=== PATIENT | female | born 2000 | race Two or more races ===

== ENCOUNTER → 2025-01-06 | Emergency (ER) | payer OTHER ==
[~2025-01-06] VITALS: Ht 162.6 cm; Wt 92.5 kg
[2025-01-07 01:11] LABS: BASO % 0.3 % (0.1-1.2); EOS # 0.65 (0.04-0.54); EOS % 5.5 % (0.7-7.0); LYMPH # 2.57 (1.18-3.74); LYMPH % 21.8 % (19.3-53.1); MEAN PLATELET VOLUME 10.80 fl (9.4-12.4); MONO # 0.70 (0.24-0.82); MONO % 5.9 % (4.7-12.5); NEUT # 7.80 (1.56-6.13); NEUT % 66.3 % (34.0-71.1); RED CELL DISTRIBUTION WIDTH 13.8 % (11.6-14.4)
[2025-01-07 01:27] LABS: URINE APPEARANCE Clear; URINE BILIRRUBIN Negative (NEGATIVE); URINE BLOOD Negative; URINE COLOR Yellow; URINE GLUCOSE Negative (NEGATIVE); URINE KETONE Negative (NEGATIVE); URINE LEUKOCYTE Negative; URINE NITRATE Negative; URINE PROTEIN Negative (NEGATIVE); URINE UROBILINOGEN 0.2 E.U./dl
[2025-01-07 01:28] LABS: URINE BACTERIA 244.7 uL (0.0-1933); URINE EPITHELIAL CELLS 7.8 uL (0.0-38.8); URINE RBC 4.3 uL (0.0-20.8); URINE WBC 6.9 uL (0.0-23.2)
[2025-01-07 01:51] LABS: URINE CAST 0.00 uL (0.0-1.40)
== END | disposition home or self-care (01) ==
LOC: ER 21:46
PROVIDERS: General Practice
DX: O20.9 Hemorrhage in early pregnancy, unspecified (principal); Z3A.08 8 weeks gestation of pregnancy

== ENCOUNTER 2025-01-12 21:24 | Emergency (ER) | payer OTHER ==
[~2025-01-12] VITALS: Ht 162.6 cm; Wt 92.5 kg
[2025-01-12] MEDS ORDERED: PRENATE DHA SO1 EAC1 (21:35)
[2025-01-12] MEDS ORDERED: 0.9 % SODIUM CHLORIDE 1,000 ML IV ONE (22:00)
[2025-01-12] MEDS ORDERED: FAMOtidine 10 MG/ML (4ML VIAL) IV ONE (22:00)
[2025-01-12] MEDS ORDERED: ACETAMINOPHEN 325 MG TABLET PO ONE (22:30)
[2025-01-12 23:07] LABS: BASO % 0.4 % (0.1-1.2); EOS # 0.48 (0.04-0.54); EOS % 3.7 % (0.7-7.0); LYMPH # 2.80 (1.18-3.74); LYMPH % 21.7 % (19.3-53.1); MEAN PLATELET VOLUME 10.60 fl (9.4-12.4); MONO # 0.51 (0.24-0.82); MONO % 3.9 % (4.7-12.5); NEUT # 9.03 (1.56-6.13); NEUT % 69.9 % (34.0-71.1); RED CELL DISTRIBUTION WIDTH 13.7 % (11.6-14.4)
[2025-01-12 23:20] LABS: URINE APPEARANCE Clear; URINE BILIRRUBIN Negative (NEGATIVE); URINE BLOOD Negative; URINE COLOR Yellow; URINE GLUCOSE Negative (NEGATIVE); URINE KETONE Negative (NEGATIVE); URINE LEUKOCYTE Negative; URINE NITRATE Negative; URINE PROTEIN Negative (NEGATIVE); URINE UROBILINOGEN 0.2 E.U./dl
[2025-01-12 23:21] LABS: URINE BACTERIA 2993.7 uL (0.0-1933); URINE EPITHELIAL CELLS 16.7 uL (0.0-38.8); URINE RBC 4.9 uL (0.0-20.8); URINE WBC 29.3 uL (0.0-23.2)
[2025-01-12 23:36] LABS: COVID-19 AG NEGATIVE (NEGATIVE)
[2025-01-12 23:49] LABS: ALT/SGPT 20.0 U/L (12-78); AST/SGOT 10.0 U/L (15-37); BILIRUBIN TOTAL 0.17 mg/dL (0.3-1.2); BUN CREA RATIO 12.0 (7.0-25.0); CREATININE SERUM 0.57 mg/dL (0.55-1.02); GFR 131.44; GLOBULINA 4.0 G/DL (2.4-3.5); GLUCOSE FASTING 98.0 mg/dL (65-100); OSMOLALITY SERUM 272.0 MOSM/KG (275-295)
[2025-01-12 23:51] LABS: URINE CAST 0.00 uL (0.0-1.40)
[2025-01-12 23:51] LABS: HCG QUANTITATIVE 89234.0 mUI/mL (1-3)
[2025-01-13] MEDS ORDERED: ZOFRAN8 MG PO (00:11)
[2025-01-13] MEDS ORDERED: PROBIOTIC1 EAC2 PO (00:11)
[2025-01-13] MEDS ORDERED: PEPCID AC20 MG PO (00:11)
== END 2025-01-13 00:22 | disposition home or self-care (01) ==
LOC: ER 21:24
PROVIDERS: General Practice
DX: O99.611 Diseases of the digestive system complicating pregnancy, first trimester (principal); R19.7 Diarrhea, unspecified; Z3A.09 9 weeks gestation of pregnancy; Z87.09 Personal history of other diseases of the respiratory system; Z20.822 Contact with and (suspected) exposure to COVID-19

== ENCOUNTER 2025-01-21 13:15 | Emergency (ER) | payer OTHER ==
[~2025-01-21] VITALS: Ht 152.4 cm; Wt 92.5 kg
[~2025-01-21 13:15] MED LIST: PEPCID AC20 MG PO; PRENATE DHA SO1 EAC1; PROBIOTIC1 EAC2 PO; ZOFRAN8 MG PO
[2025-01-21 16:21] LABS: BASO % 0.3 % (0.1-1.2); EOS # 0.37 (0.04-0.54); EOS % 2.8 % (0.7-7.0); LYMPH # 1.75 (1.18-3.74); LYMPH % 13.1 % (19.3-53.1); MEAN PLATELET VOLUME 10.30 fl (9.4-12.4); MONO # 0.69 (0.24-0.82); MONO % 5.2 % (4.7-12.5); NEUT # 10.46 (1.56-6.13); NEUT % 78.4 % (34.0-71.1); RED CELL DISTRIBUTION WIDTH 13.7 % (11.6-14.4)
[2025-01-21 18:21] LABS: URINE APPEARANCE Clear; URINE BILIRRUBIN Negative (NEGATIVE); URINE BLOOD Negative; URINE COLOR Yellow; URINE GLUCOSE Negative (NEGATIVE); URINE LEUKOCYTE Negative; URINE NITRATE Negative; URINE PROTEIN Negative (NEGATIVE); URINE UROBILINOGEN 1.0 E.U./dl
[2025-01-21 18:22] LABS: URINE BACTERIA 643.5 uL (0.0-1933); URINE CAST 1.46 uL (0.0-1.40); URINE EPITHELIAL CELLS 18.9 uL (0.0-38.8); URINE RBC 19.9 uL (0.0-20.8); URINE WBC 17.3 uL (0.0-23.2)
[2025-01-21 18:40] LABS: URINE KETONE 80 (NEGATIVE)
[2025-01-21 19:39] VITALS: BP 90/60; O2SAT 100
== END 2025-01-21 19:39 | disposition home or self-care (01) ==
LOC: ER 13:15
PROVIDERS: Preventive Medicine Public Health & General Preventive Medicine
DX: O26.899 Other specified pregnancy related conditions, unspecified trimester (principal); R10.2 Pelvic and perineal pain

== ENCOUNTER 2025-01-31 20:14 | Emergency (ER) | payer OTHER ==
[~2025-01-31] VITALS: Ht 162.6 cm; Wt 92.5 kg
[2025-01-31] MEDS ORDERED: 0.9 % SODIUM CHLORIDE 1,000 ML IV STA (23:42)
[2025-02-01 00:26] LABS: BASO % 0.4 % (0.1-1.2); EOS # 0.23 (0.04-0.54); EOS % 1.7 % (0.7-7.0); LYMPH # 2.87 (1.18-3.74); LYMPH % 21.4 % (19.3-53.1); MEAN PLATELET VOLUME 11.00 fl (9.4-12.4); MONO # 0.73 (0.24-0.82); MONO % 5.4 % (4.7-12.5); NEUT # 9.51 (1.56-6.13); NEUT % 70.8 % (34.0-71.1); RED CELL DISTRIBUTION WIDTH 13.3 % (11.6-14.4)
[2025-02-01 02:43] LABS: ALT/SGPT 10.0 U/L (12-78); AST/SGOT 11.0 U/L (15-37); BILIRUBIN TOTAL 0.14 mg/dL (0.3-1.2); BUN CREA RATIO 16.0 (7.0-25.0); CREATININE SERUM 0.55 mg/dL (0.55-1.02); GFR 136.97; GLOBULINA 3.3 G/DL (2.4-3.5); GLUCOSE FASTING 82.0 mg/dL (65-100); OSMOLALITY SERUM 275.0 MOSM/KG (275-295)
[2025-02-01 02:44] LABS: HCG QUANTITATIVE 52156.0 mUI/mL (1-3)
== END 2025-02-01 03:40 | disposition home or self-care (01) ==
LOC: ER 20:14
PROVIDERS: General Practice
DX: O26.899 Other specified pregnancy related conditions, unspecified trimester (principal); Z3A.14 14 weeks gestation of pregnancy; R10.2 Pelvic and perineal pain; R11.0 Nausea

== ENCOUNTER 2025-02-14 23:43 | Emergency (ER) | payer OTHER ==
[~2025-02-14] VITALS: Ht 152.4 cm; Wt 94.3 kg
[2025-02-15] MEDS ORDERED: FAMOTIDINE/PF 20 MG in 0.9 % SODIUM CHLORIDE 8 ML IV PUSH STA (01:09)
[2025-02-15] MEDS ORDERED: 0.9 % SODIUM CHLORIDE 1,000 ML IV SCH (01:15)
[2025-02-15] MEDS ORDERED: DIPHENOXYLATE HCL/ATROPINE 1 UDTAB TABLET PO ONE (01:15)
[2025-02-15] MEDS ORDERED: ONDANSETRON HCL 2 MG/ML VIAL IV ONE (01:15)
[2025-02-15 01:53] LABS: BASO % 0.2 % (0.1-1.2); EOS # 0.27 (0.04-0.54); EOS % 2.2 % (0.7-7.0); LYMPH # 2.08 (1.18-3.74); LYMPH % 17.3 % (19.3-53.1); MEAN PLATELET VOLUME 10.80 fl (9.4-12.4); MONO # 0.64 (0.24-0.82); MONO % 5.3 % (4.7-12.5); NEUT # 8.96 (1.56-6.13); NEUT % 74.7 % (34.0-71.1); RED CELL DISTRIBUTION WIDTH 12.8 % (11.6-14.4)
[2025-02-15 02:32] LABS: ALT/SGPT 27.0 U/L (12-78); AST/SGOT 24.0 U/L (15-37); BILIRUBIN TOTAL 0.21 mg/dL (0.3-1.2); BUN CREA RATIO 9.0 (7.0-25.0); CREATININE SERUM 0.56 mg/dL (0.55-1.02); GFR 134.15; GLOBULINA 3.7 G/DL (2.4-3.5); GLUCOSE FASTING 90.0 mg/dL (65-100); OSMOLALITY SERUM 274.0 MOSM/KG (275-295)
[2025-02-15 02:44] LABS: HCG QUANTITATIVE 45052.0 mUI/mL (1-3)
[2025-02-15 02:52] LABS: URINE APPEARANCE Clear; URINE BILIRRUBIN Negative (NEGATIVE); URINE BLOOD Moderate; URINE COLOR Yellow; URINE GLUCOSE Negative (NEGATIVE); URINE KETONE Negative (NEGATIVE); URINE LEUKOCYTE Negative; URINE NITRATE Negative; URINE PROTEIN Negative (NEGATIVE); URINE UROBILINOGEN 0.2 E.U./dl
[2025-02-15 02:56] LABS: URINE BACTERIA 2431.1 uL (0.0-1933); URINE EPITHELIAL CELLS 15.8 uL (0.0-38.8); URINE RBC 112.9 uL (0.0-20.8); URINE WBC 28.6 uL (0.0-23.2)
[2025-02-15 02:58] LABS: TYPE CELLS SQUAMOUS; URINE CAST 0.00 uL (0.0-1.40)
[2025-02-15] MEDS ORDERED: NITROFURANTOIN100 MG PO (05:43)
[2025-02-15] MEDS ORDERED: ONDANSETRON ODT8 MG PO (05:43)
== END 2025-02-15 05:53 | disposition home or self-care (01) ==
LOC: ER 23:43
PROVIDERS: General Practice
DX: O20.9 Hemorrhage in early pregnancy, unspecified (principal); O23.42 Unspecified infection of urinary tract in pregnancy, second trimester; N39.0 Urinary tract infection, site not specified; O99.612 Diseases of the digestive system complicating pregnancy, second trimester; K92.89 Other specified diseases of the digestive system; R19.7 Diarrhea, unspecified; Z3A.14 14 weeks gestation of pregnancy